=== PATIENT | male | born 1975 | race Caucasian/White ===

== ENCOUNTER 2022-12-21 14:34 | Emergency (ER) | payer OTHER ==
[2022-12-21] MEDS ORDERED: ceFAZolin 1 GM in Premix Bag 1 BAG IV ONE (15:18)
[2022-12-21] MEDS ORDERED: Diphtheria,Pertussis(Acell),Tetanus Vaccine 0.5 ML Syringe IM ONE (15:18)
[2022-12-21] MEDS ORDERED: ceFAZolin 1 GM in Sodium Chloride 0.9% 50 ML IV ONE (15:27)
[2022-12-21] MEDS ORDERED: Ketorolac 30 MG/ML SDV IVPUSH ONE (15:29)
== END 2022-12-21 16:08 | disposition home or self-care (01) ==
LOC: JP.ED 14:34
DX: S08.121A Partial traumatic amputation of right ear, initial encounter (principal); Z23 Encounter for immunization; Z86.16 Personal history of COVID-19; Z72.0 Tobacco use; Z88.5 Allergy status to narcotic agent; V86.52XA Driver of snowmobile injured in nontraffic accident, initial encounter; Y92.410 Unspecified street and highway as the place of occurrence of the external cause
CPT/HCPCS: 90471; 90715; 96365; 96375; 99283; J0690; J1885; J3490

== ENCOUNTER 2023-09-01 16:14 | Emergency (ER) | payer OTHER | END 2023-09-01 18:45 | disposition home or self-care (01) | LOC: JP.ED 16:14 | DX: I82.4Y1 Acute embolism and thrombosis of unspecified deep veins of right proximal lower extremity (principal); E11.9 Type 2 diabetes mellitus without complications; F17.210 Nicotine dependence, cigarettes, uncomplicated; Z86.16 Personal history of COVID-19; Z88.5 Allergy status to narcotic agent | CPT/HCPCS: 93971-RT; 99283 ==